=== PATIENT | male | born 1955 | race Two or more races ===

== ENCOUNTER 2024-09-12 13:20 | Inpatient (IN) | payer OTHER, MEDICARE, MEDICAID ==
[~2024-09-12] VITALS: Ht 152.4 cm; Wt 87.7 kg
[2024-09-12] MEDS: dexamethasone sod phosphate 10mg/ml inj IV ONE (14:10)
[2024-09-12 14:11] LABS: BASOPHILS % (AUTO) 0.2 % (0-1); EOSINOPHILS % (AUTO) 0.2 % (0-6); HEMATOCRIT 42.5 % (42.0-52.0); HEMOGLOBIN 14.5 g/dl (14.0-17.9); LYMPHOCYTES # (AUTO) 2.7 X10'3 (1.1-4.8); MEAN CORPUSCULAR HEMOGLOBIN 32.7 PG (27.0-31.0); MEAN CORPUSCULAR HGB CONC 34.2 g/dL (33.0-36.5); MEAN CORPUSCULAR VOLUME 95.6 FL (78-98); MEAN PLATELET VOLUME 7.2 FL (7.4-10.4); MONOCYTES % (AUTO) 8.1 % (2-12); NEUTROPHILS # (AUTO) 8.7 X10'3 (1.8-7.7); NEUTROPHILS % (AUTO) 69.5 % (42-75); PLATELET COUNT 195 X10'3 (140-440); RED BLOOD COUNT 4.45 X10'6 (4.70-6.10); RED CELL DISTRIBUTION WIDTH 13.5 % (11.5-14.5); WHITE BLOOD COUNT 12.5 X10'3 (4.5-11.0)
[2024-09-12] MEDS: azithromycin/NS 500mg/250ml 250 ML IV ONE (14:12)
[2024-09-12 14:19] LABS: ALANINE AMINOTRANSFERASE 17 U/L (12-78); ALBUMIN 3.3 G/DL (3.4-5.0); ALBUMIN/GLOBULIN RATIO 0.7 (1.1-1.5); ALKALINE PHOSPHATASE 84 IU/L (46-116); ANION GAP 3 (8-16); ASPARTATE AMINO TRANSFERASE 14 U/L (10-37); BILIRUBIN,TOTAL 0.7 MG/DL (0.1-1.0); BLOOD UREA NITROGEN 12 MG/DL (7-18); BUN/CREATININE RATIO 14.1 (10.0-20.0); CALCIUM 9.2 MG/DL (8.5-10.1); CHLORIDE 97 MMOL/L (99-107); CREATININE 0.85 MG/DL (0.60-1.10); GLUCOSE 117 MG/DL (70-104); POTASSIUM 3.3 MMOL/L (3.5-5.1); SODIUM 139 MMOL/L (135-145); TOTAL CARBON DIOXIDE 39.4 MMOL/L (24-32); TOTAL PROTEIN 8.2 G/DL (6.4-8.2); eCRCL 58 ML/MIN; eGFR 89 ML/MIN
[2024-09-12 14:23] LABS: C-REACTIVE PROTEIN 17.52 MG/DL (0.0-0.5); MAGNESIUM 1.9 MG/DL (1.5-2.4)
[2024-09-12] MEDS: albuterol 2.5 MG/3 ML nebule NEB PRN (17:26)
[2024-09-12 17:31] VITALS: PULSE 75; RESP 22; O2SAT 92
[2024-09-12] MEDS ORDERED: magnesium Cl slow-release 64mg tablet PO PRN (18:20)
[2024-09-12] MEDS ORDERED: ondansetron/PF 4mg/2ml inj IV PRN (18:20)
[2024-09-12] MEDS ORDERED: potassium Cl 20 mEq SR tablet PO PRN (18:20)
[2024-09-12] MEDS ORDERED: potassium Cl 40MEQ/1/2NS 520ml 520 ML IV PRN (18:20)
[2024-09-12] MEDS ORDERED: magnesium hydroxide 30ml (MOM) UD suspension PO PRN (18:20)
[2024-09-12] MEDS ORDERED: magnesium sulf-water 2g/50mL 50 ML IV PRN (18:20)
[2024-09-12] MEDS ORDERED: acetaminophen 325mg tablet PO PRN (18:20)
[2024-09-12] MEDS ORDERED: magnesium sulf-water 4G/100mL 100 ML IV PRN (18:20)
[2024-09-12] MEDS: CefTRIAXone/D5W-Rocephin 1gm 50 ML IV SCH (18:52)
[2024-09-12] MEDS: docusate sod 100mg capsule PO SCH (20:00)
[2024-09-12] MEDS: methylPREDNISolone sod succ/PF 40mg inj. IV SCH (20:48)
[2024-09-12] MEDS: normal saline 1000ml 1,000 ML IV SCH (20:51)
[2024-09-12] MEDS: heparin, porcine 5000 units/ml vial SQ SCH (20:51)
[2024-09-12] MEDS: potassium Cl 20 mEq SR tablet PO PRN (21:00)
[2024-09-12] MEDS: K and/or MAG REPLACEMENT MC SCH (21:01)
[2024-09-13] VITALS (14 sets, daily range): BP systolic 111–156; BP diastolic 55–77; PULSE 71–88; RESP 13–20; TEMP 97.8–98.8; O2SAT 89–96
[2024-09-13] MEDS: ipratropium/albuterol 3ml nebule NEB SCH
[2024-09-13] MEDS ORDERED: LEVE500T PO (00:15)
[2024-09-13] MEDS ORDERED: FLUT1BLS11 INH (00:15)
[2024-09-13] MEDS ORDERED: SIMV-42 PO (00:15)
[2024-09-13] MEDS ORDERED: TIZA4CAP PO (00:15)
[2024-09-13] MEDS ORDERED: FLO0.4C PO (00:15)
[2024-09-13] MEDS ORDERED: SERT25TA PO (00:15)
[2024-09-13] MEDS ORDERED: ALB0.5UD NEB (00:16)
[2024-09-13 06:19] LABS: BASOPHILS % (AUTO) 0.1 % (0-1); EOSINOPHILS % (AUTO) 0 % (0-6); HEMATOCRIT 38.3 % (42.0-52.0); HEMOGLOBIN 13.1 g/dl (14.0-17.9); LYMPHOCYTES # (AUTO) 0.9 X10'3 (1.1-4.8); LYMPHOCYTES % (AUTO) 9.5 % (21-51); MEAN CORPUSCULAR HEMOGLOBIN 32.9 PG (27.0-31.0); MEAN CORPUSCULAR HGB CONC 34.2 g/dL (33.0-36.5); MEAN CORPUSCULAR VOLUME 96.4 FL (78-98); MEAN PLATELET VOLUME 7.7 FL (7.4-10.4); MONOCYTES # (AUTO) 0.3 X10'3 (0-0.9); MONOCYTES % (AUTO) 2.6 % (2-12); NEUTROPHILS # (AUTO) 8.5 X10'3 (1.8-7.7); NEUTROPHILS % (AUTO) 87.8 % (42-75); PLATELET COUNT 192 X10'3 (140-440); RED BLOOD COUNT 3.98 X10'6 (4.70-6.10); RED CELL DISTRIBUTION WIDTH 13.6 % (11.5-14.5); WHITE BLOOD COUNT 9.6 X10'3 (4.5-11.0)
[2024-09-13 06:48] LABS: ALANINE AMINOTRANSFERASE 15 U/L (12-78); ALBUMIN/GLOBULIN RATIO 0.6 (1.1-1.5); ALKALINE PHOSPHATASE 74 IU/L (46-116); ANION GAP 3 (8-16); ASPARTATE AMINO TRANSFERASE 14 U/L (10-37); BILIRUBIN,TOTAL 0.5 MG/DL (0.1-1.0); BLOOD UREA NITROGEN 17 MG/DL (7-18); BUN/CREATININE RATIO 18.9 (10.0-20.0); CALCIUM 9.3 MG/DL (8.5-10.1); CHLORIDE 100 MMOL/L (99-107); GLUCOSE 146 MG/DL (70-104); POTASSIUM 3.6 MMOL/L (3.5-5.1); SODIUM 140 MMOL/L (135-145); TOTAL CARBON DIOXIDE 36.9 MMOL/L (24-32); TOTAL PROTEIN 7.7 G/DL (6.4-8.2); eCRCL 55 ML/MIN; eGFR 84 ML/MIN
[2024-09-13] MEDS ORDERED: SALMETEROL BOTHNARES SCH (08:00)
[2024-09-13] MEDS ORDERED: FLUTICASONE PROPION BOTHNARES SCH (08:00)
[2024-09-13] MEDS: tamsulosin 0.4mg capsule PO SCH (10:33)
[2024-09-13] MEDS: tizanidine 4mg tablet PO SCH (10:34)
[2024-09-13] MEDS: sertraline 50mg tablet PO SCH (10:34)
[2024-09-13] MEDS: levetiracetam 250mg tablet PO SCH (10:35)
[2024-09-13] MEDS: azithromycin/NS 500mg/250ml 250 ML IV SCH (10:38)
[2024-09-13] MEDS: FLU VACC TS2024-25(6MOS UP)/PF 45 MCG/0.5 ML SYRINGE IMVAC ONE (10:39)
[2024-09-13 13:36] LABS: PRO BRAIN NATRIURETIC PEPTIDE 186 PG/ML (0-125)
[2024-09-13] MEDS: furosemide 20 MG/2 ML vial IV ONE (13:40)
[2024-09-13] MEDS: pneumococcal 23-VAL P-sac vacc 25 mcg/0.5ml vial IMVAC ONE (13:47)
[2024-09-13] MEDS: albuterol 2.5 MG/3 ML nebule NEB SCH (14:41)
[2024-09-13] MEDS ORDERED: [UNRECOGNIZED DRUG - CODE] PO (17:03)
[2024-09-13] MEDS ORDERED: GABA300C PO (17:06)
[2024-09-13] MEDS ORDERED: HYDR25TA5 PO (17:08)
[2024-09-13] MEDS ORDERED: PROP10TA10 PO (17:11)
[2024-09-13] MEDS: simvastatin 20mg tablet PO SCH (20:13)
[2024-09-14] VITALS (18 sets, daily range): BP systolic 107–127; BP diastolic 55–69; PULSE 70–89; RESP 15–24; TEMP 97.4–98.6; O2SAT 91–96
[2024-09-14 05:26] LABS: BASOPHILS % (AUTO) 0.1 % (0-1); EOSINOPHILS % (AUTO) 0 % (0-6); HEMATOCRIT 38.2 % (42.0-52.0); LYMPHOCYTES % (AUTO) 7.3 % (21-51); MEAN CORPUSCULAR HEMOGLOBIN 32.5 PG (27.0-31.0); MEAN CORPUSCULAR HGB CONC 33.9 g/dL (33.0-36.5); MEAN CORPUSCULAR VOLUME 95.8 FL (78-98); MEAN PLATELET VOLUME 7.2 FL (7.4-10.4); MONOCYTES # (AUTO) 0.5 X10'3 (0-0.9); MONOCYTES % (AUTO) 3.7 % (2-12); NEUTROPHILS # (AUTO) 12.6 X10'3 (1.8-7.7); NEUTROPHILS % (AUTO) 88.9 % (42-75); PLATELET COUNT 222 X10'3 (140-440); RED BLOOD COUNT 3.99 X10'6 (4.70-6.10); RED CELL DISTRIBUTION WIDTH 14.3 % (11.5-14.5); WHITE BLOOD COUNT 14.2 X10'3 (4.5-11.0)
[2024-09-14 05:48] LABS: ALANINE AMINOTRANSFERASE 21 U/L (12-78); ALBUMIN 2.8 G/DL (3.4-5.0); ALBUMIN/GLOBULIN RATIO 0.6 (1.1-1.5); ALKALINE PHOSPHATASE 70 IU/L (46-116); ANION GAP 1 (8-16); ASPARTATE AMINO TRANSFERASE 54 U/L (10-37); BILIRUBIN,TOTAL 0.4 MG/DL (0.1-1.0); BLOOD UREA NITROGEN 28 MG/DL (7-18); BUN/CREATININE RATIO 29.5 (10.0-20.0); CALCIUM 9.2 MG/DL (8.5-10.1); CHLORIDE 101 MMOL/L (99-107); CREATININE 0.95 MG/DL (0.60-1.10); GLUCOSE 135 MG/DL (70-104); SODIUM 140 MMOL/L (135-145); TOTAL CARBON DIOXIDE 38.3 MMOL/L (24-32); TOTAL PROTEIN 7.2 G/DL (6.4-8.2); eCRCL 52 ML/MIN; eGFR 79 ML/MIN
[2024-09-14] MEDS: FLUTICASONE PROPION IH SCH (10:58)
[2024-09-14] MEDS: SALMETEROL IH SCH (10:58)
[2024-09-14] MEDS: methylPREDNISolone sod succ/PF 40mg inj. IV SCH (14:15)
[2024-09-15] VITALS (17 sets, daily range): BP systolic 115–150; BP diastolic 51–76; PULSE 76–92; RESP 16–20; TEMP 97.4–99; O2SAT 92–99
[2024-09-15 05:54] LABS: BASOPHILS % (AUTO) 0.1 % (0-1); EOSINOPHILS % (AUTO) 0 % (0-6); HEMATOCRIT 37.5 % (42.0-52.0); HEMOGLOBIN 12.6 g/dl (14.0-17.9); LYMPHOCYTES # (AUTO) 0.9 X10'3 (1.1-4.8); LYMPHOCYTES % (AUTO) 7.3 % (21-51); MEAN CORPUSCULAR HEMOGLOBIN 32.5 PG (27.0-31.0); MEAN CORPUSCULAR HGB CONC 33.6 g/dL (33.0-36.5); MEAN CORPUSCULAR VOLUME 96.8 FL (78-98); MEAN PLATELET VOLUME 7.3 FL (7.4-10.4); MONOCYTES # (AUTO) 0.4 X10'3 (0-0.9); MONOCYTES % (AUTO) 3.3 % (2-12); NEUTROPHILS # (AUTO) 10.9 X10'3 (1.8-7.7); NEUTROPHILS % (AUTO) 89.3 % (42-75); PLATELET COUNT 230 X10'3 (140-440); RED BLOOD COUNT 3.88 X10'6 (4.70-6.10); RED CELL DISTRIBUTION WIDTH 14.1 % (11.5-14.5); WHITE BLOOD COUNT 12.2 X10'3 (4.5-11.0)
[2024-09-15 06:14] LABS: ALANINE AMINOTRANSFERASE 29 U/L (12-78); ALBUMIN 2.6 G/DL (3.4-5.0); ALBUMIN/GLOBULIN RATIO 0.7 (1.1-1.5); ALKALINE PHOSPHATASE 66 IU/L (46-116); ANION GAP 2 (8-16); ASPARTATE AMINO TRANSFERASE 47 U/L (10-37); BILIRUBIN,TOTAL 0.2 MG/DL (0.1-1.0); BLOOD UREA NITROGEN 29 MG/DL (7-18); BUN/CREATININE RATIO 31.5 (10.0-20.0); CHLORIDE 104 MMOL/L (99-107); CREATININE 0.92 MG/DL (0.60-1.10); GLUCOSE 143 MG/DL (70-104); POTASSIUM 4.2 MMOL/L (3.5-5.1); SODIUM 143 MMOL/L (135-145); TOTAL CARBON DIOXIDE 36.6 MMOL/L (24-32); TOTAL PROTEIN 6.6 G/DL (6.4-8.2); eCRCL 54 ML/MIN; eGFR 82 ML/MIN
[2024-09-15] MEDS: sertraline 50mg tablet PO SCH (08:05)
[2024-09-15] MEDS: methylPREDNISolone sod succ/PF 40mg inj. IV SCH (15:28)
[2024-09-16] VITALS (15 sets, daily range): BP systolic 139–148; BP diastolic 63–76; PULSE 68–94; RESP 16–19; TEMP 97.8–98.1; O2SAT 93–99
[2024-09-16 05:40] LABS: BASOPHILS % (AUTO) 0.1 % (0-1); EOSINOPHILS % (AUTO) 0 % (0-6); HEMATOCRIT 37.9 % (42.0-52.0); HEMOGLOBIN 12.7 g/dl (14.0-17.9); LYMPHOCYTES # (AUTO) 1.1 X10'3 (1.1-4.8); LYMPHOCYTES % (AUTO) 7.8 % (21-51); MEAN CORPUSCULAR HEMOGLOBIN 32.5 PG (27.0-31.0); MEAN CORPUSCULAR HGB CONC 33.5 g/dL (33.0-36.5); MEAN PLATELET VOLUME 7.1 FL (7.4-10.4); MONOCYTES # (AUTO) 0.6 X10'3 (0-0.9); MONOCYTES % (AUTO) 3.9 % (2-12); NEUTROPHILS # (AUTO) 12.5 X10'3 (1.8-7.7); NEUTROPHILS % (AUTO) 88.2 % (42-75); PLATELET COUNT 214 X10'3 (140-440); RED BLOOD COUNT 3.91 X10'6 (4.70-6.10); RED CELL DISTRIBUTION WIDTH 13.9 % (11.5-14.5); WHITE BLOOD COUNT 14.2 X10'3 (4.5-11.0)
[2024-09-16 05:51] LABS: ALANINE AMINOTRANSFERASE 29 U/L (12-78); ALBUMIN 2.4 G/DL (3.4-5.0); ALBUMIN/GLOBULIN RATIO 0.6 (1.1-1.5); ALKALINE PHOSPHATASE 66 IU/L (46-116); ANION GAP 3 (8-16); ASPARTATE AMINO TRANSFERASE 34 U/L (10-37); BILIRUBIN,TOTAL 0.3 MG/DL (0.1-1.0); BLOOD UREA NITROGEN 25 MG/DL (7-18); BUN/CREATININE RATIO 30.1 (10.0-20.0); CALCIUM 8.4 MG/DL (8.5-10.1); CHLORIDE 105 MMOL/L (99-107); CREATININE 0.83 MG/DL (0.60-1.10); GLUCOSE 131 MG/DL (70-104); POTASSIUM 4.1 MMOL/L (3.5-5.1); SODIUM 142 MMOL/L (135-145); TOTAL CARBON DIOXIDE 33.6 MMOL/L (24-32); TOTAL PROTEIN 6.3 G/DL (6.4-8.2); eCRCL 59 ML/MIN; eGFR > 90 ML/MIN
[2024-09-16] MEDS ORDERED: LEVO750T68 PO (10:03)
[2024-09-16] MEDS ORDERED: PRED10TA23 PO (10:03)
[2024-09-16] MEDS: mag hydrox/Alum hydrox/simeth 30ml oral suspension PO PRN (16:06)
[2024-09-17] VITALS (10 sets, daily range): BP systolic 136–156; BP diastolic 65–77; PULSE 69–90; RESP 18–20; TEMP 97.3–98.8; O2SAT 89–96
[2024-09-17 06:44] LABS: BASOPHILS % (AUTO) 0 % (0-1); EOSINOPHILS % (AUTO) 0 % (0-6); HEMATOCRIT 39.2 % (42.0-52.0); HEMOGLOBIN 13.1 g/dl (14.0-17.9); LYMPHOCYTES # (AUTO) 1.1 X10'3 (1.1-4.8); LYMPHOCYTES % (AUTO) 7.8 % (21-51); MEAN CORPUSCULAR HGB CONC 33.3 g/dL (33.0-36.5); MEAN CORPUSCULAR VOLUME 95.9 FL (78-98); MONOCYTES # (AUTO) 0.5 X10'3 (0-0.9); MONOCYTES % (AUTO) 3.4 % (2-12); NEUTROPHILS # (AUTO) 12.9 X10'3 (1.8-7.7); NEUTROPHILS % (AUTO) 88.8 % (42-75); PLATELET COUNT 213 X10'3 (140-440); RED BLOOD COUNT 4.09 X10'6 (4.70-6.10); RED CELL DISTRIBUTION WIDTH 13.8 % (11.5-14.5); WHITE BLOOD COUNT 14.5 X10'3 (4.5-11.0)
[2024-09-17 07:02] LABS: ALANINE AMINOTRANSFERASE 30 U/L (12-78); ALBUMIN 2.4 G/DL (3.4-5.0); ALBUMIN/GLOBULIN RATIO 0.6 (1.1-1.5); ALKALINE PHOSPHATASE 67 IU/L (46-116); ANION GAP 3 (8-16); ASPARTATE AMINO TRANSFERASE 20 U/L (10-37); BILIRUBIN,TOTAL 0.3 MG/DL (0.1-1.0); BLOOD UREA NITROGEN 24 MG/DL (7-18); BUN/CREATININE RATIO 30.8 (10.0-20.0); CALCIUM 8.6 MG/DL (8.5-10.1); CHLORIDE 105 MMOL/L (99-107); CREATININE 0.78 MG/DL (0.60-1.10); GLUCOSE 122 MG/DL (70-104); POTASSIUM 4.6 MMOL/L (3.5-5.1); SODIUM 141 MMOL/L (135-145); TOTAL CARBON DIOXIDE 33.1 MMOL/L (24-32); TOTAL PROTEIN 6.1 G/DL (6.4-8.2); eCRCL 63 ML/MIN; eGFR > 90 ML/MIN
== END 2024-09-17 16:56 | disposition home health service (06) | DRG 871 ==
LOC: ER 13:20 → ED HOLD 17:05 → ORTHO 4S 09-13 00:45
PROVIDERS: ADMIT Internal Medicine; ATTEND Internal Medicine
DX: A41.9 Sepsis, unspecified organism (principal); J18.0 Bronchopneumonia, unspecified organism; J96.01 Acute respiratory failure with hypoxia; J44.1 Chronic obstructive pulmonary disease with (acute) exacerbation; Z20.822 Contact with and (suspected) exposure to COVID-19; G40.909 Epilepsy, unspecified, not intractable, without status epilepticus; N40.0 Benign prostatic hyperplasia without lower urinary tract symptoms; J43.9 Emphysema, unspecified; G43.909 Migraine, unspecified, not intractable, without status migrainosus; G62.9 Polyneuropathy, unspecified; F32.A Depression, unspecified; I10 Essential (primary) hypertension; E78.5 Hyperlipidemia, unspecified; F17.210 Nicotine dependence, cigarettes, uncomplicated
CPT/HCPCS: 36415; 71045; 80053; 83605; 83735; 83880; 84145; 84484; 85025; 86140; 87040; 87081; 87502; 87503; 87811; 90732; 93005; 93306; 94640; 94760; 97161; 97530; 99285; G0378; J0456; J0696; J1100; J1644; J1940; J2919; J7030

== ENCOUNTER 2024-10-16 12:12 | Inpatient (IN) | payer OTHER, MEDICARE, MEDICAID ==
[~2024-10-16] VITALS: Ht 177.8 cm; Wt 81.0 kg
[~2024-10-16 12:12] MED LIST: ALB0.5UD NEB; FLUT1BLS11 INH; GABA300C PO; LEVE500T PO; PRED10TA23 PO; PROP10TA10 PO; SERT25TA PO; SIMV-42 PO; TAMS-55 PO; TIZA4CAP PO; [UNRECOGNIZED DRUG - CODE] PO
[2024-10-16 12:42] LABS: BASOPHILS % (AUTO) 0.3 % (0-1); EOSINOPHILS # (AUTO) 0.1 X10'3 (0-0.9); EOSINOPHILS % (AUTO) 1.1 % (0-6); HEMATOCRIT 43.9 % (42.0-52.0); HEMOGLOBIN 14.4 g/dl (14.0-17.9); LYMPHOCYTES # (AUTO) 2.6 X10'3 (1.1-4.8); LYMPHOCYTES % (AUTO) 31.2 % (21-51); MEAN CORPUSCULAR HEMOGLOBIN 31.7 PG (27.0-31.0); MEAN CORPUSCULAR HGB CONC 32.9 g/dL (33.0-36.5); MEAN CORPUSCULAR VOLUME 96.3 FL (78-98); MEAN PLATELET VOLUME 7.1 FL (7.4-10.4); MONOCYTES # (AUTO) 0.6 X10'3 (0-0.9); MONOCYTES % (AUTO) 7.7 % (2-12); NEUTROPHILS # (AUTO) 4.9 X10'3 (1.8-7.7); NEUTROPHILS % (AUTO) 59.7 % (42-75); PLATELET COUNT 194 X10'3 (140-440); RED BLOOD COUNT 4.56 X10'6 (4.70-6.10); RED CELL DISTRIBUTION WIDTH 14.5 % (11.5-14.5); WHITE BLOOD COUNT 8.2 X10'3 (4.5-11.0)
[2024-10-16] MEDS: CefTRIAXone/D5W-Rocephin 1gm 50 ML IV ONE (12:54)
[2024-10-16] MEDS: methylPREDNISolone sod succ 125mg/2ml vial IV ONE (12:54)
[2024-10-16] MEDS: albuterol 2.5 MG/3 ML nebule CONTNEB PRN (13:04)
[2024-10-16 13:07] VITALS: PULSE 70; RESP 24; O2SAT 96
[2024-10-16 13:08] LABS: ALANINE AMINOTRANSFERASE 26 U/L (12-78); ALBUMIN 3.5 G/DL (3.4-5.0); ALBUMIN/GLOBULIN RATIO 0.8 (1.1-1.5); ALKALINE PHOSPHATASE 95 IU/L (46-116); ANION GAP -1 (8-16); ASPARTATE AMINO TRANSFERASE 14 U/L (10-37); BILIRUBIN,TOTAL 0.4 MG/DL (0.1-1.0); BLOOD UREA NITROGEN 6 MG/DL (7-18); BUN/CREATININE RATIO 7.6 (10.0-20.0); CALCIUM 9.3 MG/DL (8.5-10.1); CHLORIDE 104 MMOL/L (99-107); CREATININE 0.79 MG/DL (0.60-1.10); GLUCOSE 83 MG/DL (70-104); PRO BRAIN NATRIURETIC PEPTIDE 119 PG/ML (0-125); SODIUM 146 MMOL/L (135-145); TOTAL PROTEIN 7.9 G/DL (6.4-8.2); eCRCL 91 ML/MIN; eGFR > 90 ML/MIN
[2024-10-16 13:15] LABS: TOTAL CARBON DIOXIDE 43.1 MMOL/L (24-32)
[2024-10-16 14:11] VITALS: PULSE 72; RESP 19; O2SAT 99
[2024-10-16] MEDS ORDERED: magnesium sulf-water 2g/50mL 50 ML IV PRN (15:55)
[2024-10-16] MEDS ORDERED: potassium Cl 20 mEq SR tablet PO PRN ×2 (15:55)
[2024-10-16] MEDS ORDERED: potassium Cl 40MEQ/1/2NS 520ml 520 ML IV PRN (15:55)
[2024-10-16] MEDS ORDERED: magnesium sulf-water 4G/100mL 100 ML IV PRN (15:55)
[2024-10-16] MEDS ORDERED: acetaminophen 325mg tablet PO PRN ×2 (15:55)
[2024-10-16] MEDS ORDERED: magnesium hydroxide 30ml (MOM) UD suspension PO PRN (15:55)
[2024-10-16] MEDS ORDERED: ipratropium/albuterol 3ml nebule NEB PRN (15:55)
[2024-10-16] MEDS ORDERED: magnesium Cl slow-release 64mg tablet PO PRN (15:55)
[2024-10-16] MEDS ORDERED: mag hydrox/Alum hydrox/simeth 30ml oral suspension PO PRN (15:55)
[2024-10-16] MEDS ORDERED: ondansetron/PF 4mg/2ml inj IV PRN (15:55)
[2024-10-16 16:25] VITALS: BP 127/70; PULSE 75; RESP 75; TEMP 98; O2SAT 18
[2024-10-16 16:52] LABS: MAGNESIUM 2.1 MG/DL (1.5-2.4)
[2024-10-16] MEDS: azithromycin/NS 500mg/250ml 250 ML IV SCH (17:48)
[2024-10-16] MEDS: tamsulosin 0.4mg capsule PO SCH (17:54)
[2024-10-16] MEDS: ipratropium/albuterol 3ml nebule NEB SCH (19:00)
[2024-10-16 20:00] VITALS: RESP 16; O2SAT 95
[2024-10-16] MEDS: K and/or MAG REPLACEMENT MC SCH (20:00)
[2024-10-16] MEDS: morphine 2 MG/ML inj. syringe IV ONE (20:05)
[2024-10-16] MEDS: methylPREDNISolone sod succ/PF 40mg inj. IV SCH (20:05)
[2024-10-16] MEDS: levetiracetam 250mg tablet PO SCH (20:05)
[2024-10-16] MEDS: simvastatin 20mg tablet PO SCH (20:06)
[2024-10-16] MEDS: sertraline 50mg tablet PO SCH (20:06)
[2024-10-16] MEDS: LORazepam 0.5 MG tablet PO ONE (20:06)
[2024-10-16] MEDS: heparin, porcine 5000 units/ml vial SQ SCH (20:06)
[2024-10-16] MEDS: gabapentin 300mg capsule PO SCH (20:07)
[2024-10-16 22:00] VITALS: BP 150/75; PULSE 85; RESP 15; TEMP 98.6; O2SAT 96
[2024-10-16] MEDS: tizanidine 4mg tablet PO SCH (23:49)
[2024-10-17] VITALS (18 sets, daily range): BP systolic 117–134; BP diastolic 60–74; PULSE 60–89; RESP 14–22; TEMP 97.6–98.9; O2SAT 89–98
[2024-10-17 06:14] LABS: BASOPHILS % (AUTO) 0.1 % (0-1); EOSINOPHILS % (AUTO) 0 % (0-6); HEMATOCRIT 39.1 % (42.0-52.0); HEMOGLOBIN 12.9 g/dl (14.0-17.9); LYMPHOCYTES # (AUTO) 1.3 X10'3 (1.1-4.8); LYMPHOCYTES % (AUTO) 10.5 % (21-51); MEAN CORPUSCULAR HEMOGLOBIN 31.4 PG (27.0-31.0); MEAN CORPUSCULAR HGB CONC 32.9 g/dL (33.0-36.5); MEAN CORPUSCULAR VOLUME 95.3 FL (78-98); MEAN PLATELET VOLUME 7.2 FL (7.4-10.4); MONOCYTES # (AUTO) 0.3 X10'3 (0-0.9); MONOCYTES % (AUTO) 2.1 % (2-12); NEUTROPHILS # (AUTO) 10.7 X10'3 (1.8-7.7); NEUTROPHILS % (AUTO) 87.3 % (42-75); PLATELET COUNT 179 X10'3 (140-440); RED CELL DISTRIBUTION WIDTH 14.1 % (11.5-14.5); WHITE BLOOD COUNT 12.3 X10'3 (4.5-11.0)
[2024-10-17 06:36] LABS: ALANINE AMINOTRANSFERASE 23 U/L (12-78); ALBUMIN 2.9 G/DL (3.4-5.0); ALBUMIN/GLOBULIN RATIO 0.7 (1.1-1.5); ALKALINE PHOSPHATASE 74 IU/L (46-116); ANION GAP 4 (8-16); ASPARTATE AMINO TRANSFERASE 15 U/L (10-37); BILIRUBIN,TOTAL 0.3 MG/DL (0.1-1.0); BLOOD UREA NITROGEN 14 MG/DL (7-18); BUN/CREATININE RATIO 19.7 (10.0-20.0); CALCIUM 8.9 MG/DL (8.5-10.1); CHLORIDE 102 MMOL/L (99-107); CHOL/HDL RATIO 2.6 (0.00-4.99); CHOLESTEROL 209 MG/DL (0-200); CREATININE 0.71 MG/DL (0.60-1.10); GLUCOSE 125 MG/DL (70-104); HDL CHOLESTEROL 80 MG/DL (35-60); LDL CHOLESTEROL 109 MG/DL (50-100); MAGNESIUM 1.6 MG/DL (1.5-2.4); POTASSIUM 4.1 MMOL/L (3.5-5.1); SODIUM 141 MMOL/L (135-145); TOTAL CARBON DIOXIDE 34.7 MMOL/L (24-32); TOTAL PROTEIN 7.1 G/DL (6.4-8.2); TRIGLYCERIDES 66 MG/DL (20-135); eCRCL 101 ML/MIN; eGFR > 90 ML/MIN
[2024-10-17] MEDS: nicotine 21mg patch - 24 hr TD SCH (07:51)
[2024-10-17] MEDS: aspirin 81mg, enteric-coated 1 TAB TABLET.DR PO SCH (07:52)
[2024-10-17] MEDS: propranolol 10mg tablet PO SCH (07:52)
[2024-10-17] MEDS: CefTRIAXone/D5W-Rocephin 1gm 50 ML IV SCH (08:00)
[2024-10-17 09:52] LABS: ABG BASE EXCESS 9.9 mmol/L (-2.0-3.0); ABG HCO3 35.4 mmol/L (21.0-28.0); ABG PCO2 (T) 51.8 mmHg (35.0-48.0); ABG PH (T) 7.453 (7.350-7.450); ABG PO2 (T) 65.2 mmHg (83.0-108.0); ALLEN'S TEST POSITIVE; FCOHb 0.6 % (0.5-1.5); FLOW 2 L/min; FMetHb 0.1 % (0.0-1.5); FO2Hb 92.3 % (94.0-98.0); MODE NASAL CANNULA; TOTAL HEMOGLOBIN 12.9 G/dl (13.5-17.5)
[2024-10-17 10:19] LABS: D-DIMER 0.43 MG/L FEU (0-0.50)
[2024-10-17 12:43] LABS: BILIRUBIN,URINE NEGATIVE (Neg); CLARITY,URINE CLEAR (Clear); COLOR,URINE YELLOW (Yellow); GLUCOSE, URINE NEGATIVE (Neg); KETONES,URINE NEGATIVE (Neg); LEUKOCYTE ESTERASE ,URINE NEGATIVE (Neg); NITRITES, URINE NEGATIVE (Neg); OCCULT BLOOD,URINE NEGATIVE (Neg); PH,URINE 7.5 (4.8-8.0); PROTEIN,URINE NEGATIVE (Neg); UROBILINOGEN,URINE 0.2 E.U/dL (0.2-1.0)
[2024-10-17 12:49] LABS: UA COLLECTION TYPE NON-SPECIFIED
[2024-10-17 13:05] LABS: URINE AMPHETAMINE SCREEN NEGATIVE (Neg); URINE BARBITUATE SCREEN NEGATIVE (Neg); URINE BENZODIAZEPINES SCREEN POSITIVE (Neg); URINE CANNABINOID SCREEN POSITIVE (Neg); URINE COCAINE SCREEN NEGATIVE (Neg); URINE METHADONE SCREEN NEGATIVE (Neg); URINE OPIATE SCREEN POSITIVE (Neg); URINE PHENCYCLIDINE SCREEN NEGATIVE (Neg)
[2024-10-18] VITALS (16 sets, daily range): BP systolic 110–140; BP diastolic 58–88; PULSE 66–77; RESP 18–20; TEMP 96.8–98.1; O2SAT 89–96
[2024-10-18 06:25] LABS: ALANINE AMINOTRANSFERASE 17 U/L (12-78); ALBUMIN 2.9 G/DL (3.4-5.0); ALBUMIN/GLOBULIN RATIO 0.7 (1.1-1.5); ALKALINE PHOSPHATASE 73 IU/L (46-116); ANION GAP 3 (8-16); ASPARTATE AMINO TRANSFERASE 12 U/L (10-37); BILIRUBIN,TOTAL 0.3 MG/DL (0.1-1.0); BLOOD UREA NITROGEN 21 MG/DL (7-18); BUN/CREATININE RATIO 26.3 (10.0-20.0); CALCIUM 8.9 MG/DL (8.5-10.1); CHLORIDE 103 MMOL/L (99-107); GLUCOSE 128 MG/DL (70-104); MAGNESIUM 1.9 MG/DL (1.5-2.4); POTASSIUM 4.3 MMOL/L (3.5-5.1); SODIUM 140 MMOL/L (135-145); TOTAL CARBON DIOXIDE 33.7 MMOL/L (24-32); TOTAL PROTEIN 6.9 G/DL (6.4-8.2); eCRCL 90 ML/MIN; eGFR > 90 ML/MIN
[2024-10-18 06:35] LABS: BASOPHILS % (AUTO) 0.1 % (0-1); EOSINOPHILS % (AUTO) 0 % (0-6); HEMATOCRIT 37.3 % (42.0-52.0); HEMOGLOBIN 12.5 g/dl (14.0-17.9); LYMPHOCYTES # (AUTO) 1.5 X10'3 (1.1-4.8); LYMPHOCYTES % (AUTO) 11.2 % (21-51); MEAN CORPUSCULAR HGB CONC 33.6 g/dL (33.0-36.5); MEAN CORPUSCULAR VOLUME 95.3 FL (78-98); MEAN PLATELET VOLUME 7.7 FL (7.4-10.4); MONOCYTES # (AUTO) 0.5 X10'3 (0-0.9); MONOCYTES % (AUTO) 3.8 % (2-12); NEUTROPHILS # (AUTO) 11.7 X10'3 (1.8-7.7); NEUTROPHILS % (AUTO) 84.9 % (42-75); PLATELET COUNT 174 X10'3 (140-440); RED BLOOD COUNT 3.92 X10'6 (4.70-6.10); RED CELL DISTRIBUTION WIDTH 14.5 % (11.5-14.5); WHITE BLOOD COUNT 13.7 X10'3 (4.5-11.0)
[2024-10-18] MEDS: pantoprazole 40mg Tablet.DR PO SCH (11:04)
[2024-10-18] MEDS: methylPREDNISolone sod succ 125mg/2ml vial IV ONE (11:19)
[2024-10-18] MEDS: methylPREDNISolone sod succ 125mg/2ml vial IV SCH (16:49)
[2024-10-19 06:00] VITALS: BP 147/79; PULSE 64; RESP 16; TEMP 98.4; O2SAT 94
[2024-10-19 06:10] LABS: ALANINE AMINOTRANSFERASE 15 U/L (12-78); ALBUMIN 2.8 G/DL (3.4-5.0); ALBUMIN/GLOBULIN RATIO 0.8 (1.1-1.5); ALKALINE PHOSPHATASE 71 IU/L (46-116); ANION GAP 5 (8-16); ASPARTATE AMINO TRANSFERASE 11 U/L (10-37); BILIRUBIN,TOTAL 0.3 MG/DL (0.1-1.0); BLOOD UREA NITROGEN 24 MG/DL (7-18); CALCIUM 8.9 MG/DL (8.5-10.1); CHLORIDE 105 MMOL/L (99-107); GLUCOSE 128 MG/DL (70-104); POTASSIUM 4.3 MMOL/L (3.5-5.1); SODIUM 141 MMOL/L (135-145); TOTAL CARBON DIOXIDE 30.6 MMOL/L (24-32); TOTAL PROTEIN 6.3 G/DL (6.4-8.2); eCRCL 90 ML/MIN; eGFR > 90 ML/MIN
[2024-10-19 06:14] LABS: BASOPHILS % (AUTO) 0.1 % (0-1); EOSINOPHILS % (AUTO) 0 % (0-6); HEMATOCRIT 39.1 % (42.0-52.0); HEMOGLOBIN 12.6 g/dl (14.0-17.9); LYMPHOCYTES # (AUTO) 1.5 X10'3 (1.1-4.8); LYMPHOCYTES % (AUTO) 8.7 % (21-51); MEAN CORPUSCULAR HEMOGLOBIN 30.8 PG (27.0-31.0); MEAN CORPUSCULAR HGB CONC 32.2 g/dL (33.0-36.5); MEAN CORPUSCULAR VOLUME 95.7 FL (78-98); MEAN PLATELET VOLUME 7.7 FL (7.4-10.4); MONOCYTES # (AUTO) 0.3 X10'3 (0-0.9); MONOCYTES % (AUTO) 1.9 % (2-12); NEUTROPHILS % (AUTO) 89.3 % (42-75); PLATELET COUNT 176 X10'3 (140-440); RED BLOOD COUNT 4.08 X10'6 (4.70-6.10); RED CELL DISTRIBUTION WIDTH 14.2 % (11.5-14.5); WHITE BLOOD COUNT 16.8 X10'3 (4.5-11.0)
[2024-10-19 07:35] VITALS: PULSE 68; RESP 20; O2SAT 88
[2024-10-19 07:43] VITALS: PULSE 68; RESP 20
[2024-10-19] MEDS: atorvastatin 20mg tablet PO SCH (08:46)
[2024-10-19] MEDS ORDERED: LACT1CAP26 PO (08:47)
[2024-10-19] MEDS ORDERED: CEFD300C3 PO (08:47)
[2024-10-19] MEDS ORDERED: PRED10TA23 PO (08:47)
[2024-10-19] MEDS ORDERED: ALBU8HFA PO (08:50)
[2024-10-19 10:00] VITALS: BP 134/77; PULSE 65; RESP 20; TEMP 97.8; O2SAT 94
[2024-10-19] MEDS ORDERED: FLUT1BLS11 INH (10:34)
[2024-10-19] MEDS ORDERED: NICO-687 TOP (10:34)
== END 2024-10-19 12:45 | disposition home health service (06) | DRG 189 ==
LOC: ER 12:13 → ED HOLD 14:35 → ORTHO 4S 16:24
PROVIDERS: ADMIT Family Medicine; ATTEND Family Medicine
DX: J96.21 Acute and chronic respiratory failure with hypoxia (principal); J44.1 Chronic obstructive pulmonary disease with (acute) exacerbation; J43.9 Emphysema, unspecified; E78.5 Hyperlipidemia, unspecified; Z20.822 Contact with and (suspected) exposure to COVID-19; G62.9 Polyneuropathy, unspecified; G40.909 Epilepsy, unspecified, not intractable, without status epilepticus; F32.A Depression, unspecified; I10 Essential (primary) hypertension; Z88.5 Allergy status to narcotic agent; Z79.82 Long term (current) use of aspirin; Z79.899 Other long term (current) drug therapy
CPT/HCPCS: 36415; 36600; 71045; 80053; 80061; 80305; 81003; 82803; 83605; 83735; 83880; 84145; 84484; 85018; 85025; 85379; 85610; 87040; 87070; 87081; 87502; 87503; 87811; 93005; 94640; 94760; 97116; 97161; 97530; 99291; G0378; J0456; J0696; J1644; J2270; J2919; J7040